=== PATIENT | female | born 1935 | race Caucasian/White ===

== ENCOUNTER → 2016-09-29 | Outpatient (CLI) | payer MEDICARE, BC | LOC: MC.RAD 15:35 | DX: Z12.31 Encounter for screening mammogram for malignant neoplasm of breast (principal) ==

== ENCOUNTER 2017-08-24 11:15 | Outpatient (RCR) | payer MEDICARE, BC | END 2017-10-28 | disposition still patient (30) | LOC: MKS.ESL.PT | DX: H81.13 Benign paroxysmal vertigo, bilateral (principal) | CPT/HCPCS: G8978-GP; G8979-GP ==

== ENCOUNTER → 2019-10-10 | Outpatient (CLI) | payer MEDICARE, BC | LOC: MC.RAD 18:59 | DX: Z12.31 Encounter for screening mammogram for malignant neoplasm of breast (principal); Z78.0 Asymptomatic menopausal state; Z98.82 Breast implant status ==

== ENCOUNTER → 2021-12-19 | Outpatient (CLI) | payer MEDICARE, BC | LOC: MC.RAD 10:28 | DX: Z12.31 Encounter for screening mammogram for malignant neoplasm of breast (principal) ==

== ENCOUNTER → 2023-04-06 | Outpatient (CLI) | payer MEDICARE, BC | LOC: MC.RAD 09:42 | DX: Z12.31 Encounter for screening mammogram for malignant neoplasm of breast (principal) ==